=== PATIENT | male | born 1975 | race Caucasian/White ===

== ENCOUNTER 2023-10-31 11:36 | Emergency (ER) | payer MEDICAID, OTHER ==
[~2023-10-31] VITALS: Ht 167.6 cm; Wt 68.2 kg
[~2023-10-31 11:36] MED LIST: IBUP100T81 PO
[2023-10-31] MEDS ORDERED: CEPH-558 PO (13:27)
[2023-10-31] MEDS ORDERED: IBUP-1554 PO (13:27)
[2023-10-31] MEDS ORDERED: DOXY-354 PO (13:27)
[2023-10-31] MEDS ORDERED: PERTUSS(ACELL),DIPH,TET VAC/PF 0.5 ML SYRINGE IM. ONE (13:30)
[2023-10-31] MEDS ORDERED: CEPHALEXIN MONOHYDRATE 500 MG CAPSULE PO ONE (13:30)
[2023-10-31 15:07] VITALS: BP 105/61; PULSE 65; RESP 16; TEMP 98.1
== END 2023-10-31 15:15 | disposition home or self-care (01) ==
LOC: EMS 11:36
DX: L03.011 Cellulitis of right finger (principal)
CPT/HCPCS: 90471; 90715; 99283